=== PATIENT | female | born 1935 | race Caucasian/White ===

== ENCOUNTER 2021-09-22 16:29 | Inpatient (IN) | payer MEDICARE ==
[~2021-09-22] VITALS: Ht 152.4 cm; Wt 62.0 kg
--- NOTE | 2021-09-22 16:29 | NUR ---
PT ARRIVES ALERT AND ORIENTED VIA EMS
[2021-09-22 18:12] LABS: HEMATOCRIT 38.6 % (37.0-47.0); HEMOGLOBIN 11.4 g/dl (12.0-16.0); MEAN CELL VOLUME 97.5 fL CALC (80.0-100.0); MEAN CORPUSCULAR HGB 28.8 pG CALC (26.0-32.0); MEAN CORPUSCULAR HGB CONC 29.5 g/dL CAL (32.0-36.0); NEUT# 9.93 thou/uL (2.00-7.15); RED BLOOD COUNT 3.96 mill/uL (4.20-5.60); RED CELL DISTRI WIDTH 14.8 % (11.5-15.5)
--- NOTE | 2021-09-22 19:13 | NUR ---
REPORT GIVEN BY ANASTACIO MCKEON; PT AWARE OF PLAN OF CARE; STATES NO FURTHER ASSISTANCE AT THIS TIME
[2021-09-22 20:16] LABS: BILIRUBIN, TOTAL 0.5 mg/dL (0.0-1.4); CREATININE 1.7 mg/dL (0.5-1.0); POTASSIUM 4.6 mmol/l (3.5-5.1); TOTAL PROTEIN 6.3 g/dL (6.3-8.2)
[2021-09-22 20:17] LABS: ALBUMIN 2.8 g/dL (3.2-5.0)
--- NOTE | 2021-09-22 22:29 | NUR ---
Admission Note Report Given to: RN Transported by: Wheelchair X Stretcher Transported with: X Nurse Transporter Patent IV O2 X Boat Repairer Location: ICU X MS2
--- NOTE | 2021-09-23 00:25 | NUR ---
PT SLEEPING ON ED COT
[2021-09-23] MEDS ORDERED: LOSARTAN POTASS50 MG PO (01:47)
[2021-09-23] MEDS ORDERED: ELIQUIS2.5 MG PO (01:48)
[2021-09-23] MEDS ORDERED: LEVOTHYROXIN75 MC1 PO ×2 (01:48→07:26)
[2021-09-23 02:00] VITALS: BP 171/72
[2021-09-23 04:00] VITALS: BP 170/83
[2021-09-23 05:40] LABS: HEMATOCRIT 34.9 % (37.0-47.0); HEMOGLOBIN 10.6 g/dl (12.0-16.0); MEAN CELL VOLUME 97.2 fL CALC (80.0-100.0); MEAN CORPUSCULAR HGB 29.5 pG CALC (26.0-32.0); MEAN CORPUSCULAR HGB CONC 30.4 g/dL CAL (32.0-36.0); RED BLOOD COUNT 3.59 mill/uL (4.20-5.60); RED CELL DISTRI WIDTH 14.7 % (11.5-15.5)
[2021-09-23 06:04] LABS: CREATININE 1.7 mg/dL (0.5-1.0); POTASSIUM 4.7 mmol/l (3.5-5.1)
[2021-09-23] MEDS ORDERED: SIMVASTATIN10 MG PO (07:27)
[2021-09-23] MEDS ORDERED: PLAVIX75 MG PO (07:27)
[2021-09-23 08:51] VITALS: BP 197/100
[2021-09-23 11:16] VITALS: BP 170/78
--- NOTE | 2021-09-23 12:28 | NUR ---
sleepy patient, responds to voice and pain stimuls. COLOR WEIGHER is informed of the critical value and status of the patient. Medications are administered according to MAR. Preventive rouds every hour to prevent falls and patient satisfaction.
[2021-09-23 16:22] VITALS: BP 171/75
[2021-09-23 19:00] VITALS: BP 136/71
--- NOTE | 2021-09-23 19:30 | NUR ---
RECIEVED REPORT FROM MIKE SMITH
--- NOTE | 2021-09-23 20:07 | NUR ---
PT RESTING IN SEMI FOWLERS POSITION. PT IS A/OX2. ASSESSMENT COMPLETED. RESPIRATIONS ARE EVEN AND UNLABORED ON ROOM AIR. LUNG SOUNDS ARE CLEAR. NONPRODUCTIVE COUGH NOTED. HEART RHYTHM NORMAL WITH TELE PLACE, SR PER ER MONITORING. BOWEL SOUNDS ACTIVE, PT UNABLE TO STATE LAST BM. #22G LAC INFUSING WITH IVF PER ORDER, SITE PATENT. SKIN INTACT. PUREWHICK IN PLACE, CONTINOUS LOW SUCTION. PT DENIES OF ANY PAINS OR DISCOMFORTS AT THIS TIME. ALL SAFETY PRECAUTIONS ARE IN PLACE WITH CALL LIGHT IN REACH. WILL CONTINUE TO MONITOR.
[2021-09-24] VITALS: BP 163/81
--- NOTE | 2021-09-24 01:54 | NUR ---
PT SLEEPING IN LOW FOWLERS POSITION. REPSIRATIONS EVEN AND UNLABORED ON ROOM AIR. IVF INFUSING PER ORDER, SITE PATENT. TELE MONITORING IN PLACE. NO S/S OF DISTRESS. ALL SAFTEY PRECAUTIONS ARE IN PLACE WITH CALL LIGHT IN REACH. WILL CONTINUE TO MONITOR
[2021-09-24 02:52] LABS: URINE BILIRUBIN - DIPSTICK NEGATIVE (NEGATIVE); URINE BLOOD DIPSTICK SMALL (NEGATIVE); URINE COLOR YELLOW; URINE GLUCOSE - DIPSTICK NEGATIVE (NEGATIVE); URINE KETONE NEGATIVE (NEGATIVE); URINE PROTEIN - DIPSTICK TRACE mg/dL (NEG-TRACE); URINE UROBILINOGEN - DIPSTICK 0.2 E.U./dL (0.2)
[2021-09-24 02:54] LABS: URINE NITRITE - DIPSTICK POSITIVE (Negative)
[2021-09-24 02:57] LABS: URINE LEUK ESTERASE NEGATIVE (NEGATIVE)
[2021-09-24 03:01] LABS: URINE BACTERIA MANY hpf; URINE EPITHELIAL CELLS MANY EPI/hpf (0-FEW); URINE RBC 25-50 RBC/hpf (0-5); URINE YEAST MODERATE hpf
--- NOTE | 2021-09-24 04:21 | NUR ---
REPORTS OF BP BEING ELEVATED. REASSESSMENT REUSLTING IN 164/90, HR 104, TEMP 102.0. PT TO BE MEICATED WITH TYLENOL. RESPIRATIONS REMAINS EVEN AND UNLABORED ON ROOM AIR. TELE MONIOTRING IN PLACE.IVF INFUSING PER ORDER, SITE REMAINS PATENT. PUREWICK IN PLACE, LOW CONT SUCTION.NO S/S OF DISTRESS. ALL SAFTEY PRECAUTIONS ARE IN PLACE WITH CALL LIGHT IN REACH. WILL CONTINUE TO MONITOR.
[2021-09-24 04:23] VITALS: BP 164/90
--- NOTE | 2021-09-24 05:37 | NUR ---
REASSESSMENT OF TEMP REUSLTING IN 99.5
[2021-09-24 06:07] LABS: HEMATOCRIT 34.4 % (37.0-47.0); HEMOGLOBIN 10.7 g/dl (12.0-16.0); MEAN CELL VOLUME 94.8 fL CALC (80.0-100.0); MEAN CORPUSCULAR HGB 29.5 pG CALC (26.0-32.0); MEAN CORPUSCULAR HGB CONC 31.1 g/dL CAL (32.0-36.0); RED BLOOD COUNT 3.63 mill/uL (4.20-5.60); RED CELL DISTRI WIDTH 14.5 % (11.5-15.5)
[2021-09-24 06:30] LABS: ANION GAP 14 (6-22 (CALC)); BUN 31 mg/dL (8-23); BUN/CREATININE RATIO 19 (12-20 (CALC)); CARBON DIOXIDE 17 mmol/l (22-30); CHLORIDE 111 mmol/l (95-108); CREATININE 1.6 mg/dL (0.5-1.0); GFR 30 ML/MIN (>=60 (CALC)); GFR FOR AFR.AMER. 37 ML/MIN (>=60 (CALC)); SODIUM 137 mmol/l (137-146)
[2021-09-24 07:00] LABS: CPK < 20 u/l (30-165)
[2021-09-24 11:37] VITALS: BP 150/71
--- NOTE | 2021-09-24 13:42 | NUR ---
S: WARREN HURT is a 86 F who presents with fall . Denies past medical history. All medications in patient's chart were reviewed. O: VS: BP = 150/71 mmHg, P = 91 bpm , RR = 19 bpm,T = 99.2 F W= 62kg, YQ=354 cm, Scr=1.6 g/dL,CrCl= 24 ml/min A: Blood culture is pending . Urine culture is pending. P: Patient is on cefepime 1 g IV BID. Vancomycin ordered for pharmacy to dose. Start Vancomycin 1 g IV Q36H. Vancomycin trough is drawn before the 4th dose on 09/28/2021 @2230. Vancomycin goal trough is between 10-20 mcg/ml. Pharmacy will follow and or advise on antibiotics use as needed.
[2021-09-24 16:04] VITALS: BP 166/80
[2021-09-24 19:00] VITALS: BP 135/79
--- NOTE | 2021-09-24 19:55 | NUR ---
PT SLEEPING IN SEMI FOWLERS POSITION. AWAKENS TO SPEECH. PT IS A/OX2. ASSESSMENT COMPLETED. RESPIRATIONS ARE EVEN AND UNLABORED ON ROOM AIR. LUNG SOUNDS CLEAR. HEART RHYTHM NORMAL WITH TELE IN PLACE, SR PER ER MONITORING. BOWEL SOUNDS HYPOACTIVE, LBM UNKNOWN. PEDAL PULSES WEAK. #22G LAC INFUSING WITH IVF PER ORDER, SITE REMAINS HEALTHY AND PATENT. REDNESS NOTED TO BUTTOCKS. Q2H TURNING REINFORCED. PT DENIES OF ANY PAINS OR DISCOMFORTS BUT YELLS OUT WHEN RESPOSITIONING TO RIGHT SIDE. TYLENOL ADMINISTERED FRO PAIN AND TEMP RESULTING IN 100.8.ALL SAFTEY PRECAUTIONS ARE IN PLACE WITH CALL LIGHT IN REACH.WILL CONTINUE TO MONITOR.
--- NOTE | 2021-09-24 21:59 | NUR ---
REASSESSMENT OF TEMP RESULTING IN 98.8
[2021-09-25] VITALS: BP 132/67
--- NOTE | 2021-09-25 00:24 | NUR ---
PT SLEEPING IN LOW FOWLERS POSITION. RESPIRATIONS ARE EVEN AND UNLABORED ON ROOM AIR. TELE MONITORING IN PLACE. IVF INFUSING PER ORDER, SITE REMAINS PATENT. NO SIGNS OF ANY DISTRESS NOTED. ALL SAFTEY PRECAUTIONS ARE IN PLACE WITH CALL LIGHT IN REACH. WILL CONTINUE TO MONITOR
[2021-09-25 04:00] VITALS: BP 166/87
--- NOTE | 2021-09-25 04:21 | NUR ---
PT INCONT OF URINE AT THIS TIME. PERICARE PROVIDED BY AID. REDNESS NOTED TO BUTTOCKS. PT REPOSITIONED WITH PILLOWS. RESPIRATIONS REMAINS EVEN AND UNLABORE DON ROOM AIR. #22G LAC INFUSING WITH IVF PER ORDER, SITE REMAINS HEALTHY AND PATENT. TELE MONITORING IN PLACE. ALL SAFTEY PRECAUTIONS ARE IN PLACE WITH CALL LIGHT IN REACH. WILL CONTINUE TO MONITOR.
--- NOTE | 2021-09-25 05:21 | NUR ---
SCHEDULED MEDICATIONS ADN TYLENOL ADMINISETRED AT THIS TIME. PT COMPLAINS OF 10/10 GENERALIZED PAIN.
[2021-09-25 06:09] LABS: HEMOGLOBIN 10.5 g/dl (12.0-16.0); MEAN CELL VOLUME 100.3 fL CALC (80.0-100.0); MEAN CORPUSCULAR HGB 30.1 pG CALC (26.0-32.0); RED BLOOD COUNT 3.49 mill/uL (4.20-5.60); RED CELL DISTRI WIDTH 14.8 % (11.5-15.5)
[2021-09-25 06:26] LABS: CREATININE 1.4 mg/dL (0.5-1.0); POTASSIUM 3.7 mmol/l (3.5-5.1)
[2021-09-25 07:36] VITALS: BP 151/71
--- NOTE | 2021-09-25 07:41 | NUR ---
SHIFT CHANGE REPORT, PT SLEEPING IN SUPINE POSITION, AWAKENS TO TACTILE STIMULI ONLY BUT FALLS ASLEEP AGAIN, DOES NOT RESPOND TO VERBAL STIMLI, SNORING, IVF INFUSING, TELE MONITOR IN PLACE, CALL GUADARRAMA IN REACH AND BED LOCKED IN LOWEST POSITION.
--- NOTE | 2021-09-25 09:29 | NUR ---
AWAKE AND ALERT AT THIS TIME, ORIENTED TO PERSON AND PLACE, C/O MID-LOWER BACK PAIN ON MOVEMENT, WARM COMPRESS APPLIED, WILL CONTINUE TO MONITOR.
--- NOTE | 2021-09-25 12:15 | NUR ---
BEING REPOSITIONED FOR MEAL AT THIS TIME, SCREAMING AND C/O BACK PAIN @ 05/14, MD NOTIFIED AND WROTE ORDERS, WILL CONTINUE TO MONITOR.
[2021-09-25 12:16] VITALS: BP 130/58
--- NOTE | 2021-09-25 17:11 | NUR ---
RESTING IN SUPINE POSITION, C/O BACK PAIN, ANALGESIC GIVEN, WILL CONTINUE TO MONITIR.
[2021-09-25 17:43] VITALS: BP 164/85
[2021-09-25 19:00] VITALS: BP 159/77
--- NOTE | 2021-09-25 19:00 | NUR ---
RECIEVED REPORT FROM MIKE BRIGHT
--- NOTE | 2021-09-25 19:58 | NUR ---
PT RESTING IN SEMI FOWLERS POSITION. PT IS A/O X1. ASSESSMENT COMPLETED. REPSIRATIONS ARE EVEN AND UNLABORED ON ROOM AIR. LUNG SOUNDS DIMINISHED IN LOWER LOBES. HEART RHYTHM NORMAL WITH TELE IN PLACE, SR WITH PVC PER ER MONITORING. BOWEL SOUNDS ARE ACTIVE, LBM UNKNOWN. POOR ORAL INTAKE NOTED. #22G LAC INFUSING WITH IVF PER ORDER, SITE REMAINS HEALTHY AND PATENT. REDNESS NOTED TO BUTTOCKS. PT DENIES OF ANY PAINS BUT CONTINUES TO YELLS OUT WHEN REPOSITIONED. PT TO BE MEDICATED WITH TYLENOL. ALL SAFTEY PRECAUTIONS ARE IN PLACE WITH CALL LIGHT IN REACH. WILL CONTINUE TO MONITOR
--- NOTE | 2021-09-25 23:58 | NUR ---
PT SLEEPING IN LOW FOLWERS POSITION. RESPIRATIONS ARE EVEN AND UNLABORED ON ROOM AIR. TELE MONITORING IN PLACE. #22G LAC INFUSING WITH IVF PER ORDER, SITE PATENT. NO SIGNS OF ANY PAINS OR DISCOMFORTS. ALL SAFTEY PRECAUTIONS ARE IN PLACE WITH CALL LIGHT IN REACH. WILL CONTINUE TO MONITOR
[2021-09-26] VITALS: BP 159/78
--- NOTE | 2021-09-26 01:09 | NUR ---
PT MEDICATED FOR 10/10 BACK PAIN. PT CONTINUES TO YELL OUT WHEN REPOSITIONING. PT MEDICATED WITH ULTRAM. ATTEMPTED TO REPOSITION PT TO SIDE. PT REFUSED YELLING OUT IN PAIN. PT REMAINS ON BACK. PILLOWS PROVIDED. WILL CONTINUE TO MONITOR
--- NOTE | 2021-09-26 01:43 | NUR ---
PT STATES PAIN MEDICATION HAS NOT HELPED MUCH. PT INFORMED OF NEEDING TO BE REPOSITIONED. PT CONTINUES TO REFUSED.
--- NOTE | 2021-09-26 03:55 | NUR ---
PT SLEEPING IN SEMI FOWLERS POSITION. RESPIRATIONS ARE EVEN AND UNLABORED WITH NO DISTRESS NOTED ON ROOM AIR. #22G LAC INFUSING WITH IVF PER ORDER, SITE REMAINS HEALTHY AND PATENT. TELE MONITORING IN PLACE. NO SIGNS OF ANY PAINS. ALL SAFTEY PRECAUTIONS ARE IN PLACE WITH CALL LIGHT IN REACH. WILL CONTINUE TO MONITOR
[2021-09-26 04:00] VITALS: BP 136/66
[2021-09-26 05:34] LABS: HEMATOCRIT 29.7 % (37.0-47.0); HEMOGLOBIN 9.3 g/dl (12.0-16.0); MEAN CORPUSCULAR HGB 29.4 pG CALC (26.0-32.0); MEAN CORPUSCULAR HGB CONC 31.3 g/dL CAL (32.0-36.0); RED BLOOD COUNT 3.16 mill/uL (4.20-5.60); RED CELL DISTRI WIDTH 14.5 % (11.5-15.5)
[2021-09-26 05:41] LABS: CREATININE 1.3 mg/dL (0.5-1.0); MAGNESIUM 1.8 mg/dL (1.6-2.3); POTASSIUM 3.4 mmol/l (3.5-5.1)
--- NOTE | 2021-09-26 06:38 | NUR ---
REASSESSMENT OF TEMP RESULTING IN 98.6
[2021-09-26 07:27] VITALS: BP 147/71
--- NOTE | 2021-09-26 07:56 | NUR ---
SHIFT CHANGE REPORT, PT RESTING IN BED IN SUPINE POSITION, ORIENTED TO PERSON, STATES SHE HURTS ALL OVER AND DOES NOT WANT TO BE REPOSITIONED, VS MEASURED AND RECORDED, IVF INFUSING, TELE MONITOR IN PLACE, CALL GUADARRAMA IN REACH AND BED LOCKED IN LOWEST POSITION.
--- NOTE | 2021-09-26 08:27 | NUR ---
PAT IN MONITOR STATION JUST REPORTED BEATS OF TRIGEMINY AND PVC, PT IS BEING FED AT THIS TIME AND OCCASIONALLY CRIES OUT REPORTING GENERALISED PAIN, VITAL SIGNS ARE WNL, WILL CONTINUE TO MONITOR.
--- NOTE | 2021-09-26 08:45 | NUR ---
PT REFUSED TO EAT BUT HAD ORAL FLUID INTAKE WHICH WAS FED TO HER, LETHAGIC AND KEEPS EYES CLOSED BUT WILL OPEN THEM FOR SHORT PERIODS WHEN PROMPTED TO, WILL NOT EVEN ATTEMPT TO FEED SELF, WILL CONTINUE TO MONITOR.
[2021-09-26 10:30] VITALS: BP 125/72
--- NOTE | 2021-09-26 12:00 | NUR ---
VOMITTING, BOOKKEEPING MANAGER NOTIFIED AND WROTE ORDERS, ANTIEMETIC GIVEN, FAMILY AT BEDSIDE, PT FELL ASLEEP SHORTLY AFTER MED GIVEN, WILL CONTINUE TO MONITOR.
[2021-09-26 15:42] VITALS: BP 131/56
--- NOTE | 2021-09-26 16:10 | NUR ---
SLEEPING IN SUPINE POSITION AFTER CMPLETE BED BATH BY ADULT DAY CARE WORKER, ELIMINATION NEEDS ADDRESSED WITH ORDERED MEDS, WILL CONTINUE TO MONITOR.
--- NOTE | 2021-09-26 17:53 | NUR ---
SLEEPING NOW AND HAS BEEN SLEEPING ALL DAY, HAD COUPLE EPISODES VOMITUS WHICH RESOLVED AFTER ANTIEMETIC ADMINISTERED, WILL NOT AWAKEN TO EAT, WILL CONTINUE TO MONITOR FOR BOWEL ELIMINATION.
--- NOTE | 2021-09-26 18:55 | NUR ---
REPORT RECEIVED FROM Sony CARDENAS RN
--- NOTE | 2021-09-26 20:15 | NUR ---
PT SHOWING DIFFICULTY SWLLOING PM MEDICATIONS. ST EVAL TO FOLLOW.
[2021-09-26 20:22] VITALS: BP 144/74
--- NOTE | 2021-09-27 | NUR ---
PATIENT AWAKE, BUT DROWSY, ORIETED TO SELF, DENIES ANY CURRETN NEEDS AT THIS TIME. CALL LIGHT AND BEDSIDE TABLE WITHIN REACH.
[2021-09-27 00:38] VITALS: BP 155/77
--- NOTE | 2021-09-27 04:00 | NUR ---
PT SCREAMING OUT, RESPONDS TO SPEECH, UNABLE TO HOLD CONVERSATION. PT CLEANED UP, LARGE BM NOTED. CALL OUT TO DR REGARDING IV MEDICATION FOR PAIN.
[2021-09-27 05:22] VITALS: BP 153/79
[2021-09-27 05:47] LABS: HEMATOCRIT 29.9 % (37.0-47.0); HEMOGLOBIN 9.4 g/dl (12.0-16.0); MEAN CELL VOLUME 93.7 fL CALC (80.0-100.0); MEAN CORPUSCULAR HGB 29.5 pG CALC (26.0-32.0); MEAN CORPUSCULAR HGB CONC 31.4 g/dL CAL (32.0-36.0); RED BLOOD COUNT 3.19 mill/uL (4.20-5.60); RED CELL DISTRI WIDTH 14.7 % (11.5-15.5)
[2021-09-27 05:56] LABS: BILIRUBIN, TOTAL 0.5 mg/dL (0.0-1.4); CREATININE 1.3 mg/dL (0.5-1.0); POTASSIUM 3.8 mmol/l (3.5-5.1)
[2021-09-27 06:06] LABS: ALBUMIN 2.1 g/dL (3.2-5.0)
[2021-09-27 07:00] VITALS: BP 148/72
--- NOTE | 2021-09-27 07:00 | NUR ---
PATIENT RESTING IN BED AT THIS TIME. PATIENT DENEIS ANY NEEDS SILVER SOLUTION MIXER DONE SEE INTERVENITONS. PATIENT HAS OLD BRUISES NOTED DUE TO FALL PREVIOUS FROM ADMISSION. TELE MONITOR ON PATIENT AND BEING MONITORED BY ED. LUNG GARZA ARE CLEAR ACCEPT IN LEFT LUNG FIELD ARE ARE DIMINISHED. SIDERAILS ARE UP CALL LIGHT WIHTIN REACH.
[2021-09-27 11:02] VITALS: BP 155/76
--- NOTE | 2021-09-27 11:18 | NUR ---
PATIENT LAYING IN BED WITH EYES CLOSED. PATIENT RESPIRATIONS ARE EASY AND UNLABORED AT THIS TIME. DAUGHTER IS AT BEDSIDE. SIDERAILS ARE UP X 2 CALL LIGHT IS WITHIN REACH. WILL CONTINUE TO MONITOR.
--- NOTE | 2021-09-27 11:22 | NUR ---
ALYSON ABRAHAM IS 5 AT THIS TIME PHARMISCIT DIANNE CALL AND STATED TO GO AHEAD AND GIVE DOSE NOW THEN HE WILL RESCHEUDLE NEXT DOSE.
--- NOTE | 2021-09-27 13:25 | NUR ---
S: WARREN HURT is a 86 F who presents with fall. She denies PMH . All medications in patient's chart were reviewed. O: VS: BP= 155/76 mmHg, P= 80 bpm, RR = 18 bpm ,T= 97.4 F W = 62kg, HT= 170cm, Scr= 1.3 mg/ dL,CrCl= 29 ml/min A: Blood culture show enterococcus faecalis ( gram positive cocci) . Urine culture show klebsiela pneumoniae which is sensitive to cefepime. P: Patient is on cefepime 1 g IV Q12H . Vancomycin ordered for pharmacy to dose. Start Vancomycin 1 g IV Q24H. Vancomycin trough is drawn before the 4th dose on 09/30/2021 @1030. Vancomycin goal trough is between 10-15 mcg/ml. Pharmacy will follow and or advise on antibiotics use as needed.
[2021-09-27 14:02] VITALS: BP 151/72
--- NOTE | 2021-09-27 14:53 | NUR ---
Pt off floor at US, will attempt to return later.
--- NOTE | 2021-09-27 16:16 | NUR ---
PATIENT RESTING IN BED AT THIS TIME. RESPONSIVE ONLY TO NAME AND PLACE TELE MONITOR ON AND BEING MONITORED BY ED AT THIS TIME. PATIENT SIDERAILS AER UP CALL LIGHT IS WITHIN REACH. WILL CONTINUE TO MONITOR.
--- NOTE | 2021-09-27 16:38 | NUR ---
S- Pt moaning but not answering question. 0- Pt in supine, eyes closed, open eyes to verbal stimuli but not answering questions or following commands to lift extremities. PROM done to BLES with gentle heel cord stretch. Pt left with heels off loaded. call alvarado in reach, PIGSKIN TRIMMER aware. Time spent with pt 15 min. 02 sats 975 HR 89. 0- pt unable to cooperate with treatment. [facility] [address] unchanged P- will follow.
[2021-09-27 19:00] VITALS: BP 173/84
--- NOTE | 2021-09-27 19:30 | NUR ---
PATIENT RESTING IN BED WITH HER EYES CLOSED AND MOUTH OPEN. ASSESSMENT COMPLETE BEST COULD BE DONE. PATIENT TENDS TO FALL BACK ASLEEP ALOT. MOUTH CARE PROVIDED TO PATIENT. CALL LIGHT AND BELONGINGS WITHIN REACH.
--- NOTE | 2021-09-27 21:40 | NUR ---
NOTIFIED PROVIDER OF PATIENTS BLOOD PRESSURE OF 178/89 HR-89. PROVIDER PUTTING ORDERS IN.
[2021-09-28 00:17] VITALS: BP 145/83
--- NOTE | 2021-09-28 00:48 | NUR ---
PATIENT REMAINS LAYING IN BED IN SEMI FOWLERS POSITION. MORE MOUTH CARE PROVIDED WITH MOISTENED SPONGE APPLICATORS. NO SIGNS OF PAIN OR DISTRESS NOTED AT THIS TIME. CALL LIGHT REMAINS IN REACH.
--- NOTE | 2021-09-28 03:30 | NUR ---
16FR JENSEN CATHETER INSERTED PER ORDERS USING STERILE TECHNIQUE. PATIENT TOLERATED WELL. 900CC YELLOW URINE IN JENSEN CATHETER.
[2021-09-28 04:00] VITALS: BP 140/64
[2021-09-28 06:24] LABS: HEMATOCRIT 31.5 % (37.0-47.0); HEMOGLOBIN 9.9 g/dl (12.0-16.0); MEAN CELL VOLUME 94.9 fL CALC (80.0-100.0); MEAN CORPUSCULAR HGB 29.8 pG CALC (26.0-32.0); MEAN CORPUSCULAR HGB CONC 31.4 g/dL CAL (32.0-36.0); RED BLOOD COUNT 3.32 mill/uL (4.20-5.60); RED CELL DISTRI WIDTH 14.8 % (11.5-15.5)
[2021-09-28 06:45] LABS: CREATININE 1.2 mg/dL (0.5-1.0); MAGNESIUM 2.1 mg/dL (1.6-2.3); POTASSIUM 3.8 mmol/l (3.5-5.1)
[2021-09-28 07:45] VITALS: BP 150/81
--- NOTE | 2021-09-28 07:45 | NUR ---
PATIENT IN BED AT THIS TIME ONLY RESPONSE TO NAME AND STIMULI. ADELINE HOME ENERGY CONSULTANT DONE. MOUTH CARE GIVEN AT THIS TIME MUCUS PLUG REMOVED FROM MOUTH DURING MOUTHCARE. JENSEN CATH PLACED AND DRAINING YELLOW URINE AT THIS TIME SIDERAIL UP CALL YOLY SWAIN HOME ENERGY CONSULTANT DONE SEE INTERVENTIONS.
--- NOTE | 2021-09-28 10:07 | NUR ---
PRELIM BLOOD CX (REPEAT BLOOD CX) SHOWS GRAM POSITIVE COCCI IN 4/4. REPORTED TO NIKI. PT IS ON AMPICILLIN FOR E FAECALIS BACTEREMIA. WILL F/U WITH FINALS.
--- NOTE | 2021-09-28 11:17 | NUR ---
PATIENT REMAINS IN BED ALERT ONLY TO SPONTANEOUS STIMULA AND NAME. SIDERAILS ARE UP CALL LIGHT WIHTIN REACH. MOUTHCARE GIVEN AT THIS TIME. TELE MONITOR IN PLACE AND WILL CONTINUE TO MONITOR. JENSEN PATENT AND DRAINING YELLOW URINE AT THIS TIME.
--- NOTE | 2021-09-28 11:32 | NUR ---
S- moans with movement. 0- Pt supine with REFRIGERATION HOUSEMAN checking bl sugar. She had eyes closed, responded to name but unable to answer questions. She did not follow commands, only active movement noted when pt lifted R arm slightly. PROM performed to BLEs with gentle heel cord stretch done. BP 148/74, HR 85, 02 sats 98%. Time spent with pt 15 min A- Pt dependent. AMPAC 6 ECF P- Will follow.
[2021-09-28 12:05] VITALS: BP 148/74
--- NOTE | 2021-09-28 15:25 | NUR ---
CALL DAUGHTER AT THIS TIME REGARDING THE USE OF MORPHINE FOR PAIN CONTROL AND DAUGHTER STATED IF SHE NEEDS IT GO AHEAD AND GIVE HER THE MORPHINE. DAUGHTER ALSO ASK THAT ALL TESTING STOP AT THIS TIME. NIKI WICK NOTIFIED OF THIS DECISION OF DAUGHTER.
--- NOTE | 2021-09-28 15:59 | NUR ---
PATIENT RESTING IN BED AT THIS TIME WITH EYES CLOSED. RESPIRTATIONS EASY AND UNLABORED. SIDERAILS ARE UP X [address] AT THIS TIME. WILL CONTINUE TO MONIOTOR.
[2021-09-28 16:01] VITALS: BP 152/70
--- NOTE | 2021-09-28 16:31 | NUR ---
PATIENT TELE D/C 'D AT THIS TIME PER NIKI ANDERSON. TELE REMOVED AND JENNIFER STEWART NOTIFIED.
--- NOTE | 2021-09-28 16:51 | NUR ---
ELIZABETH FROM HOSPICE CALL AND SPOKE TO THIS NURSE FOR UPDATES ON PATIENT. ELIZABETH STATED SHE WOULD BE REACHING OUT TO DAUGHTER AND WILL MAKE A PLAN TO MEET WITH HER TOMORROW AT THE BEDSIDE.
[2021-09-28 19:00] VITALS: BP 163/89
--- NOTE | 2021-09-28 19:20 | NUR ---
PATIENT RESTING IN BED WITH HOB ELEVATED. NO SIGNS OF DISTRESS NOTED. NO SIGNS OF PAIN OBSERVED. PATIENT DOES SLEEP WITH HER MOUTH OPEN. FREQUENT MOUTH CARE PROVIDED. JENSEN PATENT DRAINING CLEAR YELLOW URINE. CALL LIGHT AND BELONGINGS REMAIN IN PLACE.
--- NOTE | 2021-09-28 23:52 | NUR ---
PATIENT RESTING IN BED WITH MOUTH OPEN. CONTINUOUS MOUTH CARE BEING PROVIDED. NO SIGNS OF DISTRESS NOTED. PATIENT APPEARS COMFORTABLE. JENSEN CATH REMAINS DRAINGING CLEAR YELLOW URINE. CALL LIGHT IN PLACE.
--- NOTE | 2021-09-29 03:50 | NUR ---
PATIENT REMAINS LAYING IN BED WITH EYES CLOSED AND MOUTH OPEN. MOUTH CARE PROVIDED AGAIN TO PATIENT. NO DISTRESS NOTED AT THIS TIME. NO SIGNS OF PAIN.
[2021-09-29 04:00] VITALS: BP 154/84
[2021-09-29 05:47] LABS: HEMATOCRIT 28.2 % (37.0-47.0); MEAN CELL VOLUME 93.7 fL CALC (80.0-100.0); MEAN CORPUSCULAR HGB 29.9 pG CALC (26.0-32.0); MEAN CORPUSCULAR HGB CONC 31.9 g/dL CAL (32.0-36.0); RED BLOOD COUNT 3.01 mill/uL (4.20-5.60); RED CELL DISTRI WIDTH 14.5 % (11.5-15.5)
[2021-09-29 06:04] LABS: CREATININE 1.1 mg/dL (0.5-1.0); POTASSIUM 3.3 mmol/l (3.5-5.1)
[2021-09-29 08:00] VITALS: BP 158/80
--- NOTE | 2021-09-29 08:00 | NUR ---
PT UNABLE TO RESPOND TO COMMANDS. PT NOT VERBAL. ASSESSMENT AND VITALS AT THIS TIME. LUNG SOUNDS ARE EVEN AND UNLABORED. LUNG SOUNDS ARE DIMINISHED UPPER/LOWER LOBES ANTERIOR. PERFORMED MOUTH CARE. SMALL MUCUS LOCATED ON BACK OF THROAT, AIRWAY IS CLEAR. PT HAND OVER HAULER HELPER REALLY WEAK. BOWEL SOUNDS ARE ACTIVE X4 RADIAL AND PEDAL PULSE STRONG. HEART SOUNDS ARE REGULAR. PEDAL PULSE IS STRONG BILATERALLY. IV IS LOCATED LAC 20G INFUSING D5 1/2 PER EMAR. FLUSHED WITH NO RESISTANCE. PT IS NPO. GLUCOSE THIS MORNING 107, NO COVERAGE NEEDED PER SLIDING SCALE. FALL/SAFETY PRECAUTIONS IN PLACE. CALL LIGHT IS WITHIN REACH.
--- NOTE | 2021-09-29 11:20 | NUR ---
RT THERAPY HELPED WITH PERFORMING SUCTIONING WITH PT. PT TOLERATED WELL. PT RESTING WITH EYES CLOSED. BREATHING EVEN AND UNLABORED. CALL LIGHT WITHIN REACH.
--- NOTE | 2021-09-29 11:30 | NUR ---
Pt d/rin from Physcial therapy per .
--- NOTE | 2021-09-29 14:45 | NUR ---
VP LAB AT BEDSIDE
[2021-09-29 15:50] VITALS: BP 168/76
--- NOTE | 2021-09-29 17:59 | NUR ---
PT SLEEPING AT THIS TIME. BREATHING IS EVEN AND UNLABORED. FALL/SAFTEY PRECAUTIONS WITHIN REACH. CALL LIGHT WITHIN REACH
--- NOTE | 2021-09-29 19:00 | NUR ---
REPORT RECEIVED FROM Daniel MELÉNDEZ RN, PATIENT CARE ASSUMED AT THIS TIME. PT PENDING HOSPICE ADMISSION, EXPECTED TO ARRIVE AT 8PM.
[2021-09-29 19:26] VITALS: BP 192/94
--- NOTE | 2021-09-29 20:25 | NUR ---
RECEIVED CALL SAIRA FROM [facility], ETA UPDATED TO ABOUT [phone].
--- NOTE | 2021-09-29 21:15 | NUR ---
HELD PT MED, PT FAILED SWALLOW STUDY, ANIMAL SHELTER WORKER AWARE.
--- NOTE | 2021-09-29 21:35 | NUR ---
[place] ARRIVED TO [facility].
--- NOTE | 2021-09-29 21:45 | NUR ---
PT LEFT FLOOR VIA STRETCHER ACCOMPANIED BY [facility] STAFF X2.
== END 2021-09-29 21:45 | disposition hospice, home (50) | DRG 871 ==
LOC: ED 16:29 → ED-I 20:38 → ED 20:59 → ED-I 21:00 → MS2 21:00 → ED-I 21:02 → ED 21:02 → MS2 09-25 22:06
PROVIDERS: Family Medicine; Nurse Practitioner; Nurse Practitioner Family; ADMIT Hospitalist; ATTEND Hospitalist
PROC: 0T9B70Z Drainage of Bladder with Drainage Device, Via Natural or Artificial Opening (ICD-10-PCS; principal; 2021-09-28)
DX: A41.81 Sepsis due to Enterococcus (principal); G93.41 Metabolic encephalopathy; N39.0 Urinary tract infection, site not specified; N17.9 Acute kidney failure, unspecified; E87.2 Acidosis; R65.20 Severe sepsis without septic shock; E86.0 Dehydration; I10 Essential (primary) hypertension; E78.5 Hyperlipidemia, unspecified; E03.9 Hypothyroidism, unspecified; I35.0 Nonrheumatic aortic (valve) stenosis; M19.90 Unspecified osteoarthritis, unspecified site; R62.7 Adult failure to thrive; E16.2 Hypoglycemia, unspecified; S00.83XA Contusion of other part of head, initial encounter; S40.011A Contusion of right shoulder, initial encounter; S70.02XA Contusion of left hip, initial encounter; S70.01XA Contusion of right hip, initial encounter; B96.1 Klebsiella pneumoniae [K. pneumoniae] as the cause of diseases classified elsewhere; W01.0XXA Fall on same level from slipping, tripping and stumbling without subsequent striking against object, initial encounter; Y92.009 Unspecified place in unspecified non-institutional (private) residence as the place of occurrence of the external cause; Z51.5 Encounter for palliative care; Z66 Do not resuscitate; Z68.21 Body mass index [BMI] 21.0-21.9, adult; Z79.01 Long term (current) use of anticoagulants; Z91.81 History of falling; Z20.822 Contact with and (suspected) exposure to COVID-19
CPT/HCPCS: J0692; Q3014; Q9967